=== PATIENT | male | born 2000 | race African-American/Black ===

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

== ENCOUNTER 2022-02-16 14:53 | Emergency (ER) | payer MEDICAID ==
[~2022-02-16] VITALS: Ht 177.8 cm; Wt 63.5 kg
[~2022-02-16 14:53] MED LIST changes: +ACID REDUCER20 MG PO; +ZOFRAN4 MG/TAB PO
[2022-02-16 15:02] VITALS: BP 86/68
[2022-02-16 15:06] VITALS: BP 121/71
[2022-02-16] MEDS ORDERED: IBUPROFEN600 MG PO (16:21)
[2022-02-16 16:38] VITALS: BP 121/71
== END 2022-02-16 16:47 | disposition home or self-care (01) ==
LOC: ED 14:53
DX: S39.012A Strain of muscle, fascia and tendon of lower back, initial encounter (principal); X50.0XXA Overexertion from strenuous movement or load, initial encounter; Y93.89 Activity, other specified; Y92.009 Unspecified place in unspecified non-institutional (private) residence as the place of occurrence of the external cause